=== PATIENT | female | born 1990 | race Caucasian/White ===

== ENCOUNTER → 2016-11-23 | Outpatient (CLI) | payer MEDICAID ==
[~2016-11-23] MED LIST: CEFTIN250 MG PO; EFFEXOR75 MG PO; TEGRETOL200 MG PO; VYVANSE30 MG PO
[2016-11-23 12:51] LABS: HEMATOCRIT 31.9 % (33.0-46.0); HEMOGLOBIN 10.7 g/dL (11.0-15.0); MCH 30.1 pg (27.0-34.0); MCHC 33.5 gm/dL (32.0-36.5); MCV 89.9 fl (83.0-98.0); MPV 10.1 fl (9.4-12.4); PLATELET COUNT 216 K/uL (150-450); RBC 3.55 M/uL (3.50-5.00); RDW-CV 12.6 % (11.9-14.6); WBC 6.9 K/uL (4.0-11.0)
[2016-11-23 13:06] LABS: ALBUMIN 2.9 gm/dL (3.5-5.0); ALK PHOS 84 IU/L (33-138); ALT 12 IU/L (12-78); ANION GAP 12.6 (10.0-19.0); AST 13 IU/L (10-40); BLOOD UREA NITROGEN 4 mg/dL (6-24); CALCIUM 8.8 mg/dL (8.5-10.5); CHLORIDE 106 mMol/L (96-110); CO2 24 mMol/L (22-32); CREATININE 0.4 mg/dL (0.5-1.1); ESTIMATED GFR (MDRD EQUATION) > 60; POTASSIUM 3.6 mMol/L (3.7-5.1); SODIUM 139 mMol/L (135-145)
[2016-11-23 13:08] LABS: TOTAL BILIRUBIN 0.3 mg/dL (0.0-1.5)
[2016-11-23 13:25] LABS: ABSOLUTE NEUTROPHIL CT (ANC) 5.2 K/uL (1.8-7.8); LYMPHOCYTE # 1.4 K/uL (0.8-4.0); LYMPHOCYTE % 21 %; MONOCYTE # 0.3 K/uL (0.0-1.0); SEGMENTED NEUTROPHIL # 5.2 K/uL (1.8-7.8); SEGMENTED NEUTROPHIL % 75 %
== END | disposition disaster alternative care site (69) ==
LOC: LCOBG 12:29
PROVIDERS: Nurse Practitioner Women's Health
DX: O16.3 Unspecified maternal hypertension, third trimester (principal)